=== PATIENT | female | born 1950 | race Caucasian/White ===

== ENCOUNTER 2019-05-12 09:08 | Emergency (ER) | payer OTHER ==
[~2019-05-12 09:08] MED LIST: ACEBUTOLOL; AMLODIPINE; CIPRO500 MG OR; DILANTIN100 MG OR; PYRIDIUM200 MG OR; [UNRECOGNIZED DRUG - OTHER]
[2019-05-12] MEDS ORDERED: DOXYCYCL HYC100 M4 PO (09:48)
[2019-05-12] MEDS ORDERED: PROAIR HFA108 MCG/AC PO (09:48)
[2019-05-12] MEDS ORDERED: PREDNISONE50 MG PO (09:48)
[2019-05-12 10:15] VITALS: BP 133/68
== END 2019-05-12 10:27 | disposition home or self-care (01) | DRG 203 ==
LOC: ED 09:08
DX: J40 Bronchitis, not specified as acute or chronic (principal)